=== PATIENT | male | born 1960 | race Caucasian/White ===

== ENCOUNTER → 2017-08-29 | Outpatient (CLI) | payer BC ==
--- NOTE | 2017-08-29 15:38 | CONS ---
CONSULTATION DATE OF SERVICE: 08/29/2017 57-year-old gentleman has [facility] for obstructive sleep apnea- hypopnea syndrome. The patient has history of obstructive sleep apnea for many years. Last CPAP titration done in 2011. At that time, I recommended pressure was 15 cm of water. Last time I saw him in the [facility] for followup visit in 2013. At that time, his weight was 311 pounds. Patient continued to use his CPAP equipment every night for the whole night without problems. No snoring with the machine. He decreased his weight down to 305 pounds. 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 On working days, he sleeps from 4:00 pm until 12 midnight and on week days when he is off, he sleeps from around 9:00 p.m. to 6 am. During the sleep, he is again using his CPAP equipment every night and occasionally has episodes of nocturia. Otherwise, no problems with sleep. No significant daytime sleepiness. [place] Sleepiness Scale is normal, is 1 today. His machine is working well according to the patient. Previous sleep study showed severe periodic limb movements during titration, but presently the patient does not have any symptoms related to periodic limb movements. PAST SURGICAL HISTORY: Bilateral knee surgery, bilateral elbow surgery, surgery for varicose veins on the left leg. MEDICATIONS: None. SOCIAL HISTORY: Positive for smoking more than 35 years ago. Alcohol consumption occasional. PAST MEDICAL HISTORY: Practically none. FAMILY HISTORY: Both parents alive and do not have any chronic medical problems. PHYSICAL EXAM: A gentleman without distress. BP 125/80, HR 95, RR 16, height 6 feet and 2 inches, weight 305, BMI 39.1, temperature 98.4, oxygen saturation on room air 92%. Oropharynx low position of soft palate. ABDOMEN: Obese. Neck Supple, no JVD. Thyroid is not palpable. LUNGS Clear to percussion and to auscultation. Good air exchange. No wheezing or rhonchi. HEART S1, S2 regular. No murmurs, gallops, or rubs. ABDOMEN: Obese. Soft and nontender. Bowel sounds are present. No organomegaly appreciated. EXTREMITIES No clubbing or cyanosis. [employer] Awake, alert, and oriented X3. Cranial nerves 2 to 7 intact. There is no fasciculation or atrophy. noted. No focal deficits observed. IMPRESSION: 1. Obstructive sleep apnea-hypopnea syndrome. The patient continued to use his CPAP equipment every night with CPAP pressure of 15 cm of water. No snoring on CPAP. Great compliance with treatment. 2. Obesity BMI 39.1. 3. Status post bilateral knee surgery. 4. Status post right elbow surgery. 5. Status post varicose vein on the left leg surgery. 6. History of severe periodic limb movements during previous titration. No clinical symptoms of periodic limb movements. PLAN: 1. Continue treatment with CPAP every night for the whole night. 2. Continue losing weight. 3. Prescription for all necessary CPAP supplies including mask, tube, filters. 4. No driving if feeling sleepiness. Sincerely, Daquan Fitch MD, PhD, FAASM Diplomat of [employer] [facility] [place] MMREKHA / KARLEE: [id number] /
== END | disposition home or self-care (01) ==
LOC: SLEEP 13:45
PROVIDERS: ATTEND Internal Medicine
DX: Z53.9 Procedure and treatment not carried out, unspecified reason (principal)